=== PATIENT | male | born 2000 | race Caucasian/White ===

== ENCOUNTER → 2018-10-06 | Outpatient (CLI) | payer OTHER | LOC: LAB 11:10 | PROVIDERS: ATTEND Internal Medicine | DX: R94.5 Abnormal results of liver function studies (principal) | CPT/HCPCS: 36415; 80074; 81256; 82040; 82247; 82310; 82374; 82435; 82565; 82947; 84075; 84132; 84155; 84295; 84450; 84460; 84520; 86038 ==

== ENCOUNTER → 2018-10-09 | Outpatient (CLI) | payer OTHER | LOC: RESP 00:24 | PROVIDERS: ATTEND Internal Medicine | DX: G47.33 Obstructive sleep apnea (adult) (pediatric) (principal) ==

== ENCOUNTER → 2018-10-16 | Outpatient (CLI) | payer OTHER ==
--- NOTE | 2018-10-16 09:08 | RADIOLOGY IMAGING REPORT ---
FACILITY: [facility] [place] PATIENT NAME: Jhonathan Domínguez : 2000 MR: [id number] V: [id number] EXAM DATE: ORDERING PHYSICIAN: YANIV WU TECHNOLOGIST: Location: [facility] Patient: Jhonathan Domínguez : 2000 Visit/Account:[id number] Date of Sevice: 10/16/2018 LIVER HISTORY: Elevated LFTs COMPARISON: None. FINDINGS: Gallbladder: Unremarkable; no stones or sludge. Liver: The liver was difficult to image due to patient's body habitus by technologist notation. The liver appeared mildly enlarged measuring 17.3 cm in length. The echotexture is very coarse with incr eased echogenicity which can be seen with fatty infiltration other infiltrative process Common duct: Normal, 3.2 mm diameter. Pancreas: Pancreas difficult to image due to patient's body habitus. The visualized portion appeared slightly heterogeneous Right kidney: Grossly unremarkable measuring 10.3 cm in length Upper abdominal aorta and IVC: Patent. Ascites: None visualized. IMPRESSION: Hepatomegaly with coarse echotexture throughout the liver and increased echogenicity which can be see n with fatty infiltration other infiltrative process Pancreas and liver not ideally visualized due to patient's body habitus Report Dictated By: Joanne Richard MD at 10/16/2018 8:53 AM Report E-Signed By: Joanne Richard MD at 10/16/2018 9:04 AM WSN:[id number]
== END ==
LOC: US 00:23
PROVIDERS: ATTEND Internal Medicine
DX: K76.0 Fatty (change of) liver, not elsewhere classified (principal); R93.9 Diagnostic imaging inconclusive due to excess body fat of patient
CPT/HCPCS: 76705

== ENCOUNTER → 2018-11-26 | Outpatient (CLI) | payer OTHER | LOC: RESP 20:46 | PROVIDERS: ATTEND Internal Medicine | DX: G47.33 Obstructive sleep apnea (adult) (pediatric) (principal); G47.61 Periodic limb movement disorder ==

== ENCOUNTER → 2019-02-11 | Outpatient (CLI) | payer OTHER ==
--- NOTE | 2019-02-11 14:45 | EKG ---
FACILITY: [facility] PATIENT NAME: SALLY NAVA : [id number] MR: [id number] V: [id number] EXAM DATE: ORDERING PHYSICIAN: YANIV WU TECHNOLOGIST: JOCELINE Test Reason : SINUS TACHYCARDIA Blood Pressure : / mmHG Vent. Rate : 118 BPM Atrial Rate : 118 BPM P-R Int : 134 ms QRS Dur : 100 ms QT Int : 326 ms P-R-T Axes : 055 033 036 degrees QTc Int : 456 ms Sinus tachycardia Otherwise normal ECG No previous ECGs available Referred By: LIZ Confirmed By:
== END ==
LOC: RESP 14:22
PROVIDERS: ATTEND Internal Medicine
DX: Z02.9 Encounter for administrative examinations, unspecified (principal)